=== PATIENT | male | born 1940 | race Caucasian/White ===

== ENCOUNTER 2024-04-08 09:41 | Outpatient (CLI) | payer MEDICARE, OTHER, SELFPAY ==
--- NOTE | ~2024-04-08 | CT_ITS ---
EXAMINATION: CT chest abdomen pelvis w con DATE: 04/08/2024 10:25 INDICATION: Hematochezia TECHNIQUE: Computed tomography (CT) of the chest, abdomen, and pelvis was performed with 100 mL Omnip aque-350 intravenous contrast. Automated exposure control and iterative reconstruction technique were employed. The dose-length product was 859.16 mGy-cm. COMPARISON: None FINDINGS: CHEST CT: Elevation of the left hemidiaphragm with mild reticular opacities at the basilar left lower lobe and lingula most likely atelectasis or scarring with mild associated bronchiectasis. No other airspace op acities, pulmonary edema or pleural effusion. Heart size is normal. Atherosclerotic coronary artery c alcification. No pericardial effusion. Aortic valve calcification. 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 There is a second more extensive and larger diameter fusiform aneurysm of the descen ding thoracic aorta which measures up to 6.0 x 5.4 cm just below the level of the mike tapering to 3.2 cm in maximal diameter at the junction of the thoracic and abdominal aorta. No pathologically enl arged thoracic lymphadenopathy. Mild thoracic spondylosis. ABDOMEN/PELVIS CT: 5 mm low-attenuation hepatic cyst. Gallbladder, spleen, pancreas, bilateral adrenal glands and right kidney are normal. 7 mm left renal cyst. Bowels are unremarkable with no obstruction. Bladder is norm al. Mild prostatomegaly measuring 4.4 x 3.6 cm. No free intraperitoneal gas or fluid. No pathological ly enlarged abdominal or pelvic lymphadenopathy. Severe right hip osteoarthritis. Mild lumbar levocur vature with mild lumbar and moderate lumbosacral spondylosis. The abdominal aorta is tortuous with fusiform infrarenal aneurysm measuring up to 5.3 x 4.8 mm cindi l diameter measured orthogonal to the axis of flow. There is additional fusiform aneurysm of the 3.3 x 3.1 cm in maximal diameter. 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 IMPRESSION: 1. Elevation of the left hemidiaphragm with a bronchiectasis and associated atelectasis or scarring a t the left lung base. No acute cardiopulmonary disease. 2. Aneurysms of the descending and descending thoracic and infrarenal abdominal aorta as well as the left common and internal iliac arteries as detailed above. 3. Prostatomegaly. Reviewed, dictated and finalized at location A. IMPRESSION: 1. Elevation of the left hemidiaphragm with a bronchiectasis and associated ate lectasis or scarring at the left lung base. No acute cardiopulmonary disease. 2. Aneurysms of the descending and descending thoracic and infrarenal abdominal aorta as well as the left common and internal iliac arteries as detailed above . 3. Prostatomegaly.
[2024-04-08 10:05] LABS: Estimated Glomerular Filt Rate 58
== END 2024-04-08 09:42 ==
LOC: MICIMG 09:44
PROVIDERS: PCP Family Medicine; Visit Provider Family Medicine
DX: K92.1 Melena (principal); N40.0 Benign prostatic hyperplasia without lower urinary tract symptoms
CPT/HCPCS: 71260; 74177; Q9967